=== PATIENT | female | born 1990 | race Caucasian/White ===

== ENCOUNTER 2022-10-23 17:26 | Emergency (ER) | payer MEDICAID, OTHER ==
[~2022-10-23] VITALS: Ht 162.6 cm; Wt 66.0 kg
[2022-10-23 19:45] LABS: BASOPHILS % 0.4 % (0.0-2.0); EOSINOPHILS % 0.1 % (0.0-5.0); HEMATOCRIT. 43.2 % (36.0-48.0); LYMPHOCYTES % 11.6 % (20.0-50.0); MEAN CORPUSCULAR HEMOGLOBIN 29.4 pg (28.0-32.0); MEAN CORPUSCULAR VOLUME 84.8 fL (81.0-99.0); MEAN PLATELET VOLUME 10.1 fl (7.4-10.4); MONOCYTES % 1.3 % (2.0-8.0); NEUTROPHILS % 86.6 % (40.0-76.0); PLATELET 192 x1000/uL (130-400); RED CELL DISTRIBUTION WIDTH 13.6 % (11.6-14.6)
[2022-10-23] MEDS ORDERED: ONDANSETRON HCL 4MG/2ML INJ IV ONE (19:45)
[2022-10-23] MEDS ORDERED: SODIUM CHLORIDE 0.9% 1,000 ML IV ONE (19:45)
[2022-10-23] MEDS ORDERED: MECLIZINE 25MG TABLET PO ONE (19:45)
[2022-10-23 19:50] LABS: CHLORIDE 108 mEq/L (98-107)
[2022-10-23 20:39] LABS: HCG SCREEN NEGATIVE
[2022-10-23] MEDS ORDERED: MECL-159 MT (22:16)
[2022-10-23 22:45] VITALS: BP 131/69
== END 2022-10-23 23:14 | disposition home or self-care (01) ==
LOC: ER 17:42
DX: H81.10 Benign paroxysmal vertigo, unspecified ear (principal); R11.2 Nausea with vomiting, unspecified
CPT/HCPCS: 36415; 80053; 83690; 84703; 85025; 93005; 96361; 96374; 99284; J2405; J7030; J8597